=== PATIENT | female | born 1965 | race Caucasian/White ===

== ENCOUNTER → 2017-02-23 | Outpatient (CLI) | payer OTHER | LOC: KOH-I 14:30 | DX: R10.9 Unspecified abdominal pain (principal) | CPT/HCPCS: 74176 ==

== ENCOUNTER → 2017-02-26 | Outpatient (CLI) | payer OTHER | LOC: KOH-I 14:44 | DX: M54.5 Low back pain (principal); M25.552 Pain in left hip; M47.896 Other spondylosis, lumbar region | CPT/HCPCS: 72110; 73502 ==